=== PATIENT | male | born 1995 | race Caucasian/White ===

== ENCOUNTER 2017-12-10 13:23 | Emergency (ER) | payer OTHER, SELFPAY ==
--- NOTE | 2017-12-10 15:33 | ER ---
Nurse's Notes [facility] Name: Maria E Salomon Age: 22 yrs Sex: Male : 1995 Arrival Date: 12/10/2017 Time: 13:26 Bed 13 Private MD: None, None Diagnosis: Rectal Pain Presentation: 12/10 13:29 Presenting complaint: Patient states: I have a torn intestine and it causes me pain la1 every once and a while, I usually just takes someone else abx but this time its not helping. Pt denies N/V/D. Transition of care: patient was not received from another setting of care. Onset of symptoms was December 10, 2017. Risk Assessment: Do you want to hurt yourself or someone else? Patient reports no desire to harm self or others. Initial Sepsis Screen: Does the patient meet any 2 criteria? No. Patient's initial sepsis screen is negative. Does the patient have a suspected source of infection? No. Patient's initial sepsis screen is negative. Care prior to arrival: None. 13:29 Method Of Arrival: Ambulatory la1 13:29 Acuity: MICHELLE 3 la1 Historical: - Allergies: 13:30 No Known Allergies; la1 - PMHx: 13:30 None; la1 - PSHx: 13:30 None; la1 - Immunization history:: Adult Immunizations up to date. - Social history:: Smoking status: Patient uses tobacco products, denies chronic smoking, but will smoke occasionally. - Ebola Screening: : No symptoms or risks identified at this time. Screenin:11 Abuse screen: Denies threats or abuse. Nutritional screening: No deficits noted. tw2 Tuberculosis screening: No symptoms or risk factors identified. Fall Risk None identified. Assessment: 14:10 General: Appears in no apparent distress. Behavior is calm, cooperative, appropriate tw2 for age. Pain: Complains of pain in hemorrhoid. Neuro: Level of Consciousness is awake, alert, obeys commands, Oriented to person, place, time, situation. Cardiovascular: Denies chest pain, shortness of breath, Heart tones S1 S2 Capillary refill < 3 seconds Patient's skin is warm and dry. Respiratory: Airway is patent Respiratory effort is even, unlabored, Respiratory pattern is regular, symmetrical, Breath sounds are clear bilaterally. GI: Abdomen is flat, Bowel sounds present X 4 quads. Abd is soft and non tender X 4 quads. Reports hemorrhoids. : No signs and/or symptoms were reported regarding the genitourinary system. EENT: No signs and/or symptoms were reported regarding the EENT system. Derm: No signs and/or symptoms reported regarding the dermatologic system. Musculoskeletal: Capillary refill < 3 seconds, Range of motion:. 15:08 Reassessment: Patient appears in no apparent distress at this time. No changes from tw2 previously documented assessment. Patient and/or family updated on plan of care and expected duration. Pain level reassessed. Patient is alert, oriented x 3, equal unlabored respirations, skin warm/dry/pink. Vital Signs: 13:31 BP 128 / 70; Pulse 88; Resp 16; Temp 98.4(TE); Pulse Ox 100% on R/A; Weight 77.11 kg; la1 Height 5 ft. 10 in. (177.80 cm); 15:08 BP 113 / 54; Pulse 65; Resp 17; Pulse Ox 97% on R/A; tw2 13:31 Body Mass Index 24.39 (77.11 kg, 177.80 cm) la1 ED Course: 13:26 Patient arrived in ED. mr 13:26 None, None is Private Physician. mr 13:29 Jorgito Salazar, RN is Primary Nurse. la1 13:30 Triage completed. la1 13:31 Arm band placed on left wrist. la1 14:10 Placed in gown. Bed in low position. Pulse ox on. NIBP on. Warm blanket given. tw2 14:13 Watson Jaimes PA is PHCP. cp 14:13 Erik Martinez MD is Attending Physician. cp 15:29 Nicole Mason MD is Referral Physician. cp 15:42 No provider procedures requiring assistance completed. Patient did not have IV access tw2 during this emergency room visit. Administered Medications: No medications were administered Outcome: 15:33 Discharge ordered by . cp 15:42 Discharged to home ambulatory. tw2 15:42 Condition: stable 15:42 Discharge instructions given to patient, Instructed on discharge instructions, follow up and referral plans. no driving heavy equipment, Demonstrated understanding of instructions, follow-up care, medications, Prescriptions given X 2. 15:43 Patient left the ED. tw2 Signatures: BuiTessie Lee, RN RN la1 Watson Jaimes PA PA cp Wise, Tara, RN RN tw2
--- NOTE | 2017-12-10 15:33 | EDPHYS ---
Physician Documentation [facility] Name: Maria E Salomon Age: 22 yrs Sex: Male : 1995 Arrival Date: 12/10/2017 Time: 13:26 Bed 13 Private MD: None, None ED Physician Erik Martinez HPI: 12/10 15:00 This 22 yrs old Male presents to ER via Ambulatory with complaints of rectal cp pain. 15:00 The patient presents to the emergency department with pain in the rectal area. Onset: cp The symptoms/episode began/occurred 2 day(s) ago. Context: the patient has no known special context relating to the rectal area complaint(s), denies history of anal intercourse. Modifying factors: The symptoms are aggravated by bowel movement. Associate signs and symptoms: Pertinent negatives: abdominal pain, constipation, diarrhea, fever, lower GI bleeding. The patient has experienced similar episodes in the past, a few times. Historical: - Allergies: 13:30 No Known Allergies; la1 - PMHx: 13:30 None; la1 - PSHx: 13:30 None; la1 - Immunization history:: Adult Immunizations up to date. - Social history:: Smoking status: Patient uses tobacco products, denies chronic smoking, but will smoke occasionally. - Ebola Screening: : No symptoms or risks identified at this time. ROS: 15:05 Constitutional: Negative for body aches, chills, fever, poor PO intake. cp 15:05 Eyes: Negative for injury, pain, redness, and discharge. cp 15:05 ENT: Negative for drainage from ear(s), ear pain, sore throat, difficulty swallowing, difficulty handling secretions. 15:05 Cardiovascular: Negative for chest pain, palpitations. 15:05 Respiratory: Negative for cough, shortness of breath, wheezing. 15:05 Abdomen/GI: Positive for rectal pain, Negative for abdominal pain, vomiting, diarrhea, constipation, anorexia, black/tarry stool, rectal bleeding. 15:05 Back: Negative for pain at rest, pain with movement. 15:05 : Negative for urinary symptoms, testicular pain 15:05 Skin: Negative for cellulitis, rash. 15:05 All other systems are negative. Exam: 15:10 Constitutional: The patient appears in no acute distress, alert, awake, non-toxic, well cp developed, well nourished. 15:10 Head/Face: Normocephalic, atraumatic. cp 15:10 Eyes: Periorbital structures: appear normal, Conjunctiva: normal, no exudate, no injection, Sclera: no appreciated abnormality, Lids and lashes: appear normal, bilaterally. 15:10 ENT: External ear(s): are unremarkable, Nose: is normal, Mouth: Lips: moist, Oral mucosa: pink and intact, moist, Posterior pharynx: is normal, airway is patent, no erythema, no exudate. 15:10 Chest/axilla: Inspection: normal, Palpation: is normal, no crepitus, no tenderness. 15:10 Cardiovascular: Rate: normal, Rhythm: regular. 15:10 Respiratory: the patient does not display signs of respiratory distress, Respirations: normal, no use of accessory muscles, no retractions, no splinting, no tachypnea, Breath sounds: are clear throughout, no decreased breath sounds, no stridor, no wheezing. 15:10 Abdomen/GI: Inspection: abdomen appears normal, Bowel sounds: active, all quadrants, Palpation: abdomen is soft and non-tender, in all quadrants, rebound tenderness, is not appreciated, involuntary guarding, is not appreciated. 15:10 : Rectal exam: Rectal tone: normal, Stool: brown, Guaiac testing: results were negative for occult blood, hemorrhoid(s), are not appreciated, mass, is not appreciated, fissure, is not appreciated, pain on digital exam at 2 to 3 o'clock area of rectum. 15:10 Skin: abscess, not appreciated, cellulitis, is not appreciated, no rash present. Vital Signs: 13:31 BP 128 / 70; Pulse 88; Resp 16; Temp 98.4(TE); Pulse Ox 100% on R/A; Weight 77.11 kg; la1 Height 5 ft. 10 in. (177.80 cm); 15:08 BP 113 / 54; Pulse 65; Resp 17; Pulse Ox 97% on R/A; tw2 13:31 Body Mass Index 24.39 (77.11 kg, 177.80 cm) la1 MDM: 14:13 Patient medically screened. cp 15:00 Differential diagnosis: hemorrhoids, fissure, abscess, pilonidal cyst, condyloma. cp 15:28 ED course: VSS. Patient denies history of anal intercourse. cp 15:32 Data reviewed: vital signs, nurses notes, and as a result, I will discharge patient. 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 Administered Medications: No medications were administered Disposition: 18:17 Co-signature as Attending Physician, Erik Martinez MD. ma2 Disposition: 12/10/17 15:33 Discharged to Home. Impression: Rectal Pain. - Condition is Stable. - Prescriptions for Clindamycin HCl 300 mg Oral Capsule - take 1 capsule by ORAL route every 6 hours for 10 days; 40 capsule. Anusol- HC 25 mg Rectal Suppository - insert 1 suppository by RECTAL route every 12 hours As needed; 20 suppository. - Work release form, Medication Reconciliation Form, Thank You Letter, Antibiotic Education, Prescription Opioid Use form. - Follow up: Nicole Mason MD; When: 2 - 3 days; Reason: if pain continues. - Problem is new. - Symptoms are unchanged. Signatures: Jorgito Salazar, RN RN la1 Watson Jaimes PA PA cp Analisa Allen RN RN tw2 Erik Martinez MD MD ma2 Corrections: (The following items were deleted from the chart) 15:43 15:33 12/10/2017 15:33 Discharged to Home. Impression: Rectal Pain. Condition is tw2 Stable. Forms are Medication Reconciliation Form, Thank You Letter, Antibiotic Education, Prescription Opioid Use. Follow up: Nicole Mason; When: 2 - 3 days; Reason: if pain continues. Problem is new. Symptoms are unchanged. cp
== END 2017-12-10 15:43 | disposition home or self-care (01) ==
LOC: ER 13:23
DX: K62.89 Other specified diseases of anus and rectum (principal); Z72.0 Tobacco use
CPT/HCPCS: 99283

== ENCOUNTER 2018-01-19 12:11 | Emergency (ER) | payer SELFPAY ==
--- NOTE | 2018-01-19 12:44 | EDPHYS ---
Physician Documentation [facility] Name: Maria E Salomon Age: 22 yrs Sex: Male : 1995 Arrival Date: 01/19/2018 Time: 12:14 Bed 15 Private MD: None, None ED Physician Philip Pereyra HPI: 01/19 12:57 This 22 yrs old Male presents to ER via Ambulatory with complaints of Sore snw Throat. 12:57 The patient presents with sore throat. The patient describes throat pain as raw, snw scratchy. Onset: The symptoms/episode began/occurred 1 month(s) ago, and became persistent. Associated signs and symptoms: The patient has no apparent associated signs or symptoms. It is unknown whether or not the patient has had similar symptoms in the past. The patient has not recently seen a physician. pt states his throat has been uncomfortable x 1 month. Historical: - Allergies: 12:30 No Known Allergies; aj - Home Meds: 12:30 None [Active]; aj - PMHx: 12:30 None; aj - PSHx: 12:30 None; aj - Immunization history:: Adult Immunizations up to date. - Social history:: Smoking status: Patient uses tobacco products, denies chronic smoking, but will smoke occasionally. - Ebola Screening: : Patient negative for fever greater than or equal to 101.5 degrees Fahrenheit, and additional compatible Ebola Virus Disease symptoms Patient denies exposure to infectious person Patient denies travel to an Ebola-affected area in the 21 days before illness onset No symptoms or risks identified at this time. ROS: 12:55 Constitutional: Negative for fever, chills, and weight loss, Eyes: Negative for injury, snw pain, redness, and discharge, Neck: Negative for injury, pain, and swelling, Cardiovascular: Negative for chest pain, palpitations, and edema, Respiratory: Negative for shortness of breath, cough, wheezing, and pleuritic chest pain, Abdomen/GI: Negative for abdominal pain, nausea, vomiting, diarrhea, and constipation, Back: Negative for injury and pain, : Negative for injury, bleeding, discharge, and swelling, MS/Extremity: Negative for injury and deformity, Skin: Negative for injury, rash, and discoloration. 12:55 ENT: Positive for sore throat. Exam: 12:54 Constitutional: This is a well developed, well nourished patient who is awake, alert, snw and in no acute distress. Head/Face: Normocephalic, atraumatic. Eyes: Pupils equal round and reactive to light, extra-ocular motions intact. Lids and lashes normal. Conjunctiva and sclera are non-icteric and not injected. Cornea within normal limits. Periorbital areas with no swelling, redness, or edema. ENT: Nares patent. No nasal discharge, no septal abnormalities noted. Tympanic membranes are normal and external auditory canals are clear. Oropharynx with no redness, swelling, or masses, exudates, or evidence of obstruction, uvula midline. Mucous membranes moist. Neck: Trachea midline, no thyromegaly or masses palpated, and no cervical lymphadenopathy. Supple, full range of motion without nuchal rigidity, or vertebral point tenderness. No Meningismus. Chest/axilla: Normal chest wall appearance and motion. Nontender with no deformity. No lesions are appreciated. Cardiovascular: Regular rate and rhythm with a normal S1 and S2. No gallops, murmurs, or rubs. Normal PMI, no JVD. No pulse deficits. Respiratory: Lungs have equal breath sounds bilaterally, clear to auscultation and percussion. No rales, rhonchi or wheezes noted. No increased work of breathing, no retractions or nasal flaring. Abdomen/GI: Soft, non-tender, with normal bowel sounds. No distension or tympany. No guarding or rebound. No evidence of tenderness throughout. Back: No spinal tenderness. No costovertebral tenderness. Full range of motion. Skin: Warm, dry with normal turgor. Normal color with no rashes, no lesions, and no evidence of cellulitis. MS/ Extremity: Pulses equal, no cyanosis. Neurovascular intact. Full, normal range of motion. Neuro: Awake and alert, GCS 15, oriented to person, place, time, and situation. Cranial nerves II-XII grossly intact. Motor strength 5/5 in all extremities. Sensory grossly intact. Cerebellar exam normal. Normal gait. Psych: Awake, alert, with orientation to person, place and time. Behavior, mood, and affect are within normal limits. Vital Signs: 12:30 BP 134 / 60; Pulse 72; Resp 18; Temp 97.7; Pulse Ox 99% on R/A; Weight 77.11 kg; Height aj 5 ft. 10 in. (177.80 cm); 12:30 Body Mass Index 24.39 (77.11 kg, 177.80 cm) MDM: 12:37 Patient medically screened. snw Administered Medications: No medications were administered Disposition: 13:41 Co-signature as Attending Physician, Philip Pereyra MD. rn Disposition: 01/19/18 12:44 Discharged to Home. Impression: Encounter for screening, unspecified. - Condition is Stable. - Discharge Instructions: Food Choices for Gastroesophageal Reflux Disease, Adult, Dysphagia, Gastroesophageal Reflux Disease, Adult, Pharyngitis. - Medication Reconciliation Form, Thank You Letter, Antibiotic Education, Prescription Opioid Use, Work release form form. - Follow up: Private Physician; When: As needed; Reason: Worsening of condition. Signatures: Dispatcher [employer] [facility] Shira Morales, RN RN Vickie Moreno, INFORMATICA-C INFORMATICA-Csnw Zane Crowley, AQUATICS COORDINATOR AQUATICS COORDINATOR Philip Guo MD MD contractor broomcorn threshing: (The following items were deleted from the chart) 12:48 12:15 Group A Streptococcus Rapid [id number] ordered. [facility] 12:55 12:44 01/19/2018 12:44 Discharged to Home. Impression: Encounter for screening, em unspecified. Condition is Stable. Forms are Medication Reconciliation Form, Thank You Letter, Antibiotic Education, Prescription Opioid Use. Follow up: Private Physician; When: As needed; Reason: Worsening of condition. snw
--- NOTE | 2018-01-19 12:44 | ER ---
Nurse's Notes [facility] Name: Maria E Salomon Age: 22 yrs Sex: Male : 1995 Arrival Date: 01/19/2018 Time: 12:14 Bed 15 Private MD: None, None Diagnosis: Encounter for screening, unspecified Presentation: 01/19 12:29 Presenting complaint: Patient states: Sore throat upon waking for 1 month. Denies aj fever. States "it didn't get worse I just thought I should finally see someone for it and I had the day off from work.". Transition of care: patient was not received from another setting of care. Onset of symptoms was December 20, 2017. Risk Assessment: Do you want to hurt yourself or someone else? Patient reports no desire to harm self or others. Initial Sepsis Screen: Does the patient meet any 2 criteria? No. Patient's initial sepsis screen is negative. Does the patient have a suspected source of infection? No. Patient's initial sepsis screen is negative. Care prior to arrival: None. 12:29 Method Of Arrival: Ambulatory 12:29 Acuity: MICHELLE 5 aj Triage Assessment: 12:30 General: Appears in no apparent distress. comfortable, Behavior is calm, cooperative, aj appropriate for age. Pain:. EENT: Reports pain when swallowing. EENT: Throat is reddened. Neuro: Level of Consciousness is awake, alert, obeys commands, Oriented to person, place, time, situation, Appropriate for age. Respiratory: Airway is patent Respiratory effort is even, unlabored, Respiratory pattern is regular, symmetrical. Derm: Skin is intact, is healthy with good turgor, Skin is pink, warm \\T\\ dry. normal. Historical: - Allergies: 12:30 No Known Allergies; aj - Home Meds: 12:30 None [Active]; aj - PMHx: 12:30 None; aj - PSHx: 12:30 None; aj - Immunization history:: Adult Immunizations up to date. - Social history:: Smoking status: Patient uses tobacco products, denies chronic smoking, but will smoke occasionally. - Ebola Screening: : Patient negative for fever greater than or equal to 101.5 degrees Fahrenheit, and additional compatible Ebola Virus Disease symptoms Patient denies exposure to infectious person Patient denies travel to an Ebola-affected area in the 21 days before illness onset No symptoms or risks identified at this time. Screenin:45 Abuse screen: Denies threats or abuse. Nutritional screening: No deficits noted. em Tuberculosis screening: No symptoms or risk factors identified. Fall Risk None identified. Assessment: 12:42 General: Appears in no apparent distress. comfortable, Behavior is calm, cooperative. em Pain: Complains of pain in throat. Neuro: Level of Consciousness is awake, alert, obeys commands, Oriented to person, place, time, situation. Cardiovascular: Capillary refill < 3 seconds Patient's skin is warm and dry. Respiratory: Airway is patent Respiratory effort is even, unlabored, Respiratory pattern is regular, symmetrical, Breath sounds are clear bilaterally. GI: Abdomen is flat. : No signs and/or symptoms were reported regarding the genitourinary system. EENT: Oral mucosa is moist. Throat is clear is pink. Derm: Skin is intact, Skin is pink, warm \\T\\ dry. Musculoskeletal: Range of motion: intact in all extremities. 12:45 General: The previous assessment is accurate, call light remains within reach. . Vital Signs: 12:30 BP 134 / 60; Pulse 72; Resp 18; Temp 97.7; Pulse Ox 99% on R/A; Weight 77.11 kg; Height aj 5 ft. 10 in. (177.80 cm); 12:30 Body Mass Index 24.39 (77.11 kg, 177.80 cm) ED Course: 12:14 Patient arrived in ED. mr 12:14 None, None is Private Physician. mr 12:14 Vickie Kwok FNP-C [facility]. snw 12:14 Philip Pereyra MD is Attending Physician. sn 12:30 Triage completed. aj 12:30 Arm band placed on right wrist. Patient placed in an exam room. aj 12:36 Zane Crowley LVN is Primary Nurse. em 12:45 Patient has correct armband on for positive identification. Bed in low position. Call em light in reach. 12:45 No provider procedures requiring assistance completed. Patient did not have IV access em during this emergency room visit. Administered Medications: No medications were administered Outcome: 12:44 Discharge ordered by . snw 12:55 Discharged to home ambulatory. em 12:55 Condition: good 12:55 Discharge instructions given to patient, Instructed on discharge instructions, follow up and referral plans. Demonstrated understanding of instructions, follow-up care. 12:55 Patient left the ED. em Signatures: Shira Morales, RN RN Vickie Moreno, TOY ASSEMBLY SUPERVISOR-C TOY ASSEMBLY SUPERVISOR-Cs[employer] Trinity Bui mr Keo, Zane, TIRE RECAPPING MACHINE OPERATOR TIRE RECAPPING MACHINE OPERATOR em Naty Sanchez, LINDA MCKEON ss
== END 2018-01-19 12:55 | disposition home or self-care (01) ==
LOC: ER 12:11
DX: Z13.9 Encounter for screening, unspecified (principal); Z72.0 Tobacco use
CPT/HCPCS: 99281